=== PATIENT | female | born 1950 | race American Indian/Alaskan Native ===

== ENCOUNTER 2021-05-23 08:11 | Outpatient (CLI) | payer MEDICARE, BC ==
[2021-05-23 09:44] LABS: Blood Urea Nitrogen 17 mg/dL (7-17)
--- NOTE | 2021-05-23 12:02 | Cat Scan Report ---
CT CHEST, ABDOMEN, AND PELVIS WITHOUT AND WITH CONTRAST INDICATION / CLINICAL INFORMATION: C50.312. Breast cancer, worsening back pain and weight loss TECHNIQUE: Axial CT images were obtained through the chest, abdomen, and pelvis before and after 100 cc of Omnipaque [address] scans at this location are performed using CT dose reduction for ALARA by means of automated exposure control. COMPARISON: CT chest abdomen pelvis with contrast 04/22/2015 FINDINGS: HEART: No significant abnormality. CORONARY ARTERY CALCIFICATION: Moderate. THORACIC AORTA: Moderate atherosclerotic calcification without acute abnormality. MEDIASTINUM / ORESTES: No significant abnormality. PLEURA: No pleural effusion. No pneumothorax. LUNGS: No acute air space or interstitial disease. No suspicious pulmonary nodule or mass is detected . ADDITIONAL CHEST FINDINGS: Surgical site in the inferomedial left breast is noted with no obvious rec urrent mass. LIVER: No significant abnormality. GALLBLADDER: No significant abnormality. BILE DUCTS: No significant abnormality. PANCREAS: No significant abnormality. SPLEEN: No significant abnormality. ADRENALS: No significant abnormality. RIGHT KIDNEY / URETER: The right kidney is not identified suggesting nephrectomy, agenesis or severe atrophy. LEFT KIDNEY / URETER: 2.5 cm cyst near mid pole, otherwise unremarkable. STOMACH and SMALL BOWEL: No significant abnormality. COLON: No significant abnormality. APPENDIX: No significant abnormality. PERITONEUM: No free fluid. No free air. No fluid collection. LYMPH NODES: No significant adenopathy. AORTA / ARTERIES: Moderate to severe atherosclerotic disease is identified in the aorta and iliac art eries. No aneurysm. IVC / VEINS: No significant abnormality. URINARY BLADDER: No significant abnormality. REPRODUCTIVE ORGANS: No significant abnormality. ADDITIONAL FINDINGS: None. SKELETAL SYSTEM: There are moderate to severe degenerative changes in the mid to lower thoracic spine and lower lumbar spine. No suspicious or aggressive bony lesion is detected. IMPRESSION: No evidence for recurrent or metastatic disease in the chest, abdomen or pelvis. Advanced degenerative changes in the thoracic and lumbar spine. The right kidney is absent, correlate with history. Signer Name: Carlos Mitchell Jr, MD Signed: 05/23/2021 11:58 AM Workstation Name: [id number]
--- NOTE | 2021-05-23 12:07 | Nuclear Medicine Report ---
NUCLEAR MEDICINE BONE SCAN, WHOLE BODY INDICATION: C50.312 E86.9. Left breast cancer. Increasing back pain. TECHNIQUE: 27.1 mCi of Tc-99m MDP were injected IV. Whole body images were obtained. COMPARISON: CT chest abdomen pelvis with and without contrast performed the same day. Bone scan date d 04/22/2015.. FINDINGS: Skeletal Structures: Fairly symmetric, likely degenerative uptake is present involving the shoulders, lower cervical spine, mid to lower thoracic spine and lower lumbar spine. Skeletal Lesions: None. Soft Tissues: Normal. Kidneys: Normal, symmetric activity. Additional Findings: None. IMPRESSION: There is degenerative uptake in the bilateral shoulders and spine as described. No metastatic patter n is detected. Signer Name: Carlos Mitchell Jr, MD Signed: 05/23/2021 12:03 PM Workstation Name: [id number]
== END 2021-05-23 08:12 | disposition home or self-care (01) ==
LOC: NM 08:11
PROVIDERS: ATTEND Internal Medicine Hematology & Oncology
DX: C50.312 Malignant neoplasm of lower-inner quadrant of left female breast (principal); N28.1 Cyst of kidney, acquired; E86.9 Volume depletion, unspecified; I25.10 Atherosclerotic heart disease of native coronary artery without angina pectoris; I70.0 Atherosclerosis of aorta; M47.817 Spondylosis without myelopathy or radiculopathy, lumbosacral region
CPT/HCPCS: 36415; 71270; 74178; 78306; 82565; 84520; A9503; Q9967